=== PATIENT | female | born 2000 | race Caucasian/White ===

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

== ENCOUNTER → 2020-10-05 | Outpatient (CLI) | payer MEDICAID ==
[~2020-10-05] MED LIST: FLAGYL500 MG PO; PRILOTC PO; ZOFRAN ODT4 MG PO
== END ==
LOC: COL.RAD 06:45
DX: R10.11 Right upper quadrant pain (principal); R11.11 Vomiting without nausea

== ENCOUNTER 2021-01-02 09:05 | Emergency (ER) | payer MEDICAID ==
[~2021-01-02] VITALS: Ht 167.6 cm; Wt 93.2 kg
[2021-01-02 09:23] VITALS: TEMP 97.4
[2021-01-02 09:56] LABS: COLLECTION METHOD CLEAN CATCH
[2021-01-02 10:11] LABS: MUCOUS Present /lpf; PH 5 (5-8); SQUAMOUS EPITHELIAL 0-2 /hpf; URINE APPEARANCE Clear; URINE BACTERIA None Seen /hpf; URINE BILIRUBIN Negative (NEGATIVE); URINE BLOOD Negative (NEGATIVE); URINE COLOR Yellow; URINE GLUCOSE Negative (NEGATIVE); URINE KETONE Negative (NEGATIVE); URINE LEUKOCYTE ESTERASE Negative (NEGATIVE); URINE NITRATE Negative (NEGATIVE); URINE PROTEIN(semi-quant) Negative (NEGATIVE); URINE RBC 0-2 /hpf; URINE UROBILINOGEN Negative (NEGATIVE)
[2021-01-02 10:55] LABS: BASO # 0.1 (0.0-0.2); BASO % 0.5 % (0.0-2.0); EOS # 0.3 (0.0-0.7); EOS % 3.2 % (0-4.0); GRAN # 8.3 (1.4-6.5); GRAN % 78.5 % (42.2-75.2); HEMATOCRIT 42.9 % (35.0-45.0); HEMOGLOBIN 14.6 g/dl (12.0-15.0); LYMPH # 1.2 (1.2-3.4); LYMPH % 11.8 % (20.0-51.0); MEAN CELL VOLUME 86 fl (80.0-95.0); MEAN CORPUSCULAR HEMOGLOBIN 29 pg (26.0-32.0); MEAN CORPUSCULAR HGB CONC 34 g/dl (33.0-37.0); MEAN PLATELET VOLUME 10.6 fl (7.4-10.4); MONO # 0.6 (0.1-0.6); MONO % 5.7 % (1.7-9.3); PLATELET COUNT 262 K/mm3 (130-400); RED BLOOD COUNT 4.98 M/mm3 (4.10-5.30); REDCELL DISTRIBUTION WIDTH-CV 12.8 % (11.5-14.5)
[2021-01-02 11:04] LABS: ALBUMIN 4.4 gm/dL (3.5-5.0); BILIRUBIN,TOTAL 0.7 mg/dL (0.0-1.0); C-REACTIVE PROTEIN 0.7 mg/dL (0.0-0.9); CALCIUM 9.2 mg/dL (8.4-10.2); CREATININE, serum 0.74 (0.52-1.25); POTASSIUM 3.7 mmol/L (3.4-5.0); TOTAL PROTEIN 7.6 gm/dL (6.4-8.2)
[2021-01-02] MEDS ORDERED: FLAGYL500 MG PO (14:52)
[2021-01-02] MEDS ORDERED: ZOFRAN ODT4 MG PO (14:52)
[2021-01-02 15:05] VITALS: BP 100/60; PULSE 80
[2021-01-03] MEDS ORDERED: PRILOTC PO (23:34)
== END 2021-01-02 15:10 | disposition home or self-care (01) ==
LOC: COL.ER 09:05
PROVIDERS: Nurse Practitioner; Personal Emergency Response Attendant
DX: R10.31 Right lower quadrant pain (principal); Z32.02 Encounter for pregnancy test, result negative
CPT/HCPCS: J1885; J2405; J7030; Q9967

== ENCOUNTER 2021-01-03 16:59 | Inpatient (IN) | payer MEDICAID ==
[~2021-01-03] VITALS: Ht 167.6 cm; Wt 93.0 kg
[~2021-01-03 16:59] MED LIST changes: -PRILOTC PO
--- NOTE | 2021-01-03 18:50 | NUR ---
Pt ambulatory to 221 from home for direct admit per 's orders. Pt states she is have upper and lower right quadrant pain that is stabbing and constant. Pt reports nausea but it is better at this time. Requesting water. Plan of care explained and questions answered. Significant other with pt.
[2021-01-03 18:55] VITALS: BP 135/73; PULSE 79; TEMP 98.7
[2021-01-03 19:44] LABS: BASO # 0.1 (0.0-0.2); BASO % 0.5 % (0.0-2.0); EOS # 0.3 (0.0-0.7); EOS % 3.2 % (0-4.0); GRAN % 66.2 % (42.2-75.2); HEMOGLOBIN 14.3 g/dl (12.0-15.0); LYMPH # 2.4 (1.2-3.4); LYMPH % 23.2 % (20.0-51.0); MEAN CELL VOLUME 86 fl (80.0-95.0); MEAN CORPUSCULAR HEMOGLOBIN 29 pg (26.0-32.0); MEAN CORPUSCULAR HGB CONC 34 g/dl (33.0-37.0); MEAN PLATELET VOLUME 10.3 fl (7.4-10.4); MONO # 0.7 (0.1-0.6); MONO % 6.6 % (1.7-9.3); PLATELET COUNT 282 K/mm3 (130-400); RED BLOOD COUNT 4.87 M/mm3 (4.10-5.30); REDCELL DISTRIBUTION WIDTH-CV 12.6 % (11.5-14.5)
[2021-01-03 19:57] LABS: ALBUMIN 4.4 gm/dL (3.5-5.0); BILIRUBIN,TOTAL 0.6 mg/dL (0.0-1.0); C-REACTIVE PROTEIN 0.6 mg/dL (0.0-0.9); CALCIUM 9.1 mg/dL (8.4-10.2); CREATININE, serum 0.72 (0.52-1.25); POTASSIUM 3.8 mmol/L (3.4-5.0); TOTAL PROTEIN 7.7 gm/dL (6.4-8.2)
[2021-01-03] MEDS ORDERED: PRILOTC PO (23:34)
[2021-01-04] VITALS: BP 99/44; PULSE 67; TEMP 98.9
[2021-01-04 04:30] VITALS: BP 98/56; PULSE 66; TEMP 98.3
[2021-01-04 08:09] VITALS: BP 107/56; PULSE 64; TEMP 98.2
[2021-01-04 11:24] VITALS: BP 119/59; PULSE 85; TEMP 99.1
[2021-01-04 16:51] VITALS: BP 139/69; PULSE 83; TEMP 98.6
[2021-01-04 20:00] VITALS: BP 128/75; PULSE 71; TEMP 97.9
--- NOTE | 2021-01-04 20:30 | NUR ---
2029 C/O NAUSEA AND ABD PAIN WITH LITTLE RELIEF FROM PO ZOFRAN. 2044 DR GUILLEN NOTIFIED AND NEW ORDER RECEIVED. MORPHINE 2 MG IV GIVE FOR ABD PAIN. 2109 PHENERGAN 25MG OM 50 CC NS IV OVER 15 MINUTES GIVEN FOR NAUSEA.
[2021-01-05 00:30] VITALS: BP 102/54; PULSE 71; TEMP 98.3
[2021-01-05 04:40] VITALS: BP 105/67; PULSE 61; TEMP 98.4
--- NOTE | 2021-01-05 05:20 | NUR ---
0520 NORCO 5MG PO FOR C/O LOWER ABD PAIN. C/O SOME NAUSEA. JUICE AND CRACKERS TAKEN.
[2021-01-05 09:00] VITALS: BP 124/71; PULSE 73; TEMP 98
[2021-01-05 13:30] VITALS: BP 118/62; PULSE 67; TEMP 98.3
== END 2021-01-05 14:10 | disposition home or self-care (01) | DRG 759 ==
LOC: OB 16:59
PROVIDERS: ADMIT Obstetrics & Gynecology
DX: N73.9 Female pelvic inflammatory disease, unspecified (principal); K58.9 Irritable bowel syndrome, unspecified; E03.9 Hypothyroidism, unspecified; M41.9 Scoliosis, unspecified; E66.9 Obesity, unspecified; G43.909 Migraine, unspecified, not intractable, without status migrainosus; Z68.33 Body mass index [BMI] 33.0-33.9, adult; Z79.3 Long term (current) use of hormonal contraceptives; Z79.891 Long term (current) use of opiate analgesic
CPT/HCPCS: J0290; J1580; J1885; J2270; J2405; J2550; J7120

== ENCOUNTER → 2021-05-07 | Outpatient (CLI) | payer MEDICAID ==
[~2021-05-07] MED LIST changes: +PRILOTC PO
== END ==
LOC: COL.RAD 09:32
DX: R11.2 Nausea with vomiting, unspecified (principal)
CPT/HCPCS: A9537; J2805

== ENCOUNTER 2021-05-30 13:15 | Emergency (ER) | payer MEDICAID ==
[~2021-05-30] VITALS: Ht 167.6 cm; Wt 92.7 kg
[2021-05-30 13:19] VITALS: TEMP 98.1
[2021-05-30 14:27] LABS: BASO % 0.3 % (0.0-2.0); EOS # 0.1 K/mm3 (0.0-0.7); EOS % 1.1 % (0.0-4.0); GRAN # 7.3 K/mm3 (1.4-6.5); GRAN % 76.3 % (42.2-75.2); HEMOGLOBIN 13.7 g/dl (12.0-15.0); LYMPH # 1.5 K/mm3 (1.2-3.4); LYMPH % 15.2 % (20.0-51.0); MEAN CELL VOLUME 85 fl (80.0-95.0); MEAN CORPUSCULAR HEMOGLOBIN 30 pg (26-32); MEAN CORPUSCULAR HGB CONC 35 g/dl (33.0-37.0); MEAN PLATELET VOLUME 10.1 fl (7.4-10.4); MONO # 0.7 K/mm3 (0.1-0.6); MONO % 6.8 % (1.7-9.3); PLATELET COUNT 255 K/mm3 (130-400); REDCELL DISTRIBUTION WIDTH-CV 12.3 % (11.5-14.5)
[2021-05-30 14:42] LABS: ALBUMIN 3.9 gm/dL (3.5-5.0); BILIRUBIN,TOTAL 1.5 mg/dL (0.2-1.2); CALCIUM 9.1 mg/dL (8.4-10.2); CREATININE, serum 0.72 mg/dL (0.57-1.11); TOTAL PROTEIN 7.2 gm/dL (6.2-8.1)
[2021-05-30] MEDS ORDERED: ZOFRAN ODT4 MG PO (16:54)
[2021-05-30] MEDS ORDERED: PERCOCET 325 MG1 TA2 PO (16:54)
[2021-05-30 17:05] VITALS: BP 133/75; PULSE 91
== END 2021-05-30 17:45 | disposition home or self-care (01) ==
LOC: COL.ER 13:15
PROVIDERS: Personal Emergency Response Attendant
DX: R10.11 Right upper quadrant pain (principal); R11.0 Nausea; M41.9 Scoliosis, unspecified; Z88.5 Allergy status to narcotic agent; Z32.02 Encounter for pregnancy test, result negative
CPT/HCPCS: J2270; J2405; J7030

== ENCOUNTER 2021-06-05 05:20 | Day surgery (SDC) | payer MEDICAID ==
[2021-06-05] VITALS (7 sets, daily range): BP systolic 110–127; BP diastolic 63–76; PULSE 73–86; TEMP 98.2–98.5
[~2021-06-05] VITALS: Ht 167.6 cm; Wt 90.6 kg
[~2021-06-05 05:20] MED LIST changes: +PERCOCET 325 MG1 TA2 PO
[2021-06-05] MEDS ORDERED: PROZAC 20MG20 MG PO (05:38)
[2021-06-05] MEDS ORDERED: MOTRIN 600600 MG/TAB PO (09:11)
[2021-06-05] MEDS ORDERED: PERCOCET 325 MG1 TA2 PO (09:12)
--- NOTE | 2021-06-05 09:50 | NUR ---
PATIENT TRANSPORTED PER CART FROM PACU TO BAY 8 IN SDC UNIT. PATIENT IS RESTING WITH EYES CLOSED BUT DOES TALK WITH STAFF. ABD SITES ARE CDI. MONITORS APPLIED VSS ON 2LITERS. PATIENT'S MOTHER IN ROOM. LIGHTS DIMMED AND PATIENT CONTINUES RESTING.
--- NOTE | 2021-06-05 10:30 | NUR ---
VSS ON 2 LITERS. PATIENT CONTINUES RETSING. DOES NOT VOICE C/O'S.
--- NOTE | 2021-06-05 10:45 | NUR ---
VSS ON ROOM AIR. PATIENT GIVEN WATER TO DRINK. MOTHER ASSISTS HELPING PATIENT.
--- NOTE | 2021-06-05 11:00 | NUR ---
VSS ON ROOM AIR. PATIENT TALKS WITH MOTHER AND BOYFRIEND ON PHONE. PATIENT STATES SHE IS HAVING ALOT OF PAIN AND NEEDS TO VOID. PATIENT AMBULATED TO RESTROOM WITH 1 ASSIST. PATIENT STATES SHE IS NOT ABLE TO VOID AT THIS TIME. AMBULATED BACK TO BAY 8. PATIENT GIVEN MUFFIN AND APPLE JUICE TO DRINK. IV HELPLOCK. 1015 VSS ON ROOM AIR. PATIENT TOLERATES FOOD AND DRINK WITHOUT PROBLEMS. PATIENT GIVEN PERCOCET ORDERED. PATIENT SITTING UP ON CART.
--- NOTE | 2021-06-05 11:20 | NUR ---
VSS ON 2 LITERS. PATIENT RESTING IN BED WITH EYES CLOSED AND EVEN RESPIRATION. MOTHER IN ROOM.
--- NOTE | 2021-06-05 11:20 | NUR ---
VSS ON ROOM AIR. PATIENT GIVEN PERCOCET FOR DISCOMFORT. PATIENT DENIES NAUSEA. 1130 PATIENT REQUEST TO USE RESTROOM. IV DC'D WITH CATHETER TIP INTACT. PRESSURE AND BANDAGE APPLIED. PATIENT AMBULATED TO RESTROOM AND VOID WITHOUT PROBLEMS. MOTHER WITH PATIENT. 1140 DISCHARGE INSTRUCTIONS GIVEN VERBAL AND DISCHARGE PACKET PROVIDED. QUESTIONS ANSWERED AND PATIENT AND MOTHER VOICED UNDERSTANDING. [address] CLOTHES[address] 1155 PATIENT DICHARGED PER WHEELCHAIR. ACCOMPANIED BY AMB RN TO PRIVATE VECHILE AND MOTHER ACCOMPANIES. VECHILE DRIVEN BY BOYFRIEND.
== END 2021-06-05 11:55 | disposition home or self-care (01) ==
LOC: SDCO 05:20
DX: K80.44 Calculus of bile duct with chronic cholecystitis without obstruction (principal); K21.9 Gastro-esophageal reflux disease without esophagitis; F31.9 Bipolar disorder, unspecified; F41.9 Anxiety disorder, unspecified; Z79.899 Other long term (current) drug therapy
CPT/HCPCS: J0330; J0690; J1100; J1885; J2250; J2405; J2704; J3010; J7120

== ENCOUNTER 2021-11-03 09:28 | Emergency (ER) | payer MEDICAID ==
[~2021-11-03] VITALS: Ht 165.1 cm; Wt 88.6 kg
[~2021-11-03 09:28] MED LIST changes: +MOTRIN 600600 MG/TAB PO; +PROZAC 20MG20 MG PO
[2021-11-03 09:47] VITALS: TEMP 97.7
[2021-11-03 10:15] LABS: BASO # 0.1 K/mm3 (0.0-0.2); BASO % 0.6 % (0.0-2.0); EOS # 0.2 K/mm3 (0.0-0.7); EOS % 2.2 % (0.0-4.0); GRAN # 7.5 K/mm3 (1.4-6.5); HEMATOCRIT 39.8 % (37.0-47.0); HEMOGLOBIN 14.1 g/dl (12.5-16.0); LYMPH # 1.4 K/mm3 (1.2-3.4); LYMPH % 13.9 % (20.0-51.0); MEAN CELL VOLUME 86 fl (80.0-100.0); MEAN CORPUSCULAR HEMOGLOBIN 30 pg (27-31); MEAN CORPUSCULAR HGB CONC 35 g/dl (33.0-37.0); MEAN PLATELET VOLUME 10.7 fl (7.4-10.4); MONO # 0.6 K/mm3 (0.1-0.6); MONO % 6.1 % (1.7-9.3); PLATELET COUNT 235 K/mm3 (130-400); RED BLOOD COUNT 4.64 M/mm3 (4.10-5.30); REDCELL DISTRIBUTION WIDTH-CV 12.1 % (11.5-14.5)
[2021-11-03 10:31] LABS: ALBUMIN 3.8 gm/dL (3.5-5.0); BILIRUBIN,TOTAL 0.7 mg/dL (0.2-1.2); CALCIUM 8.9 mg/dL (8.4-10.2); CREATININE, serum 0.77 mg/dL (0.57-1.11); TOTAL PROTEIN 7.6 gm/dL (6.2-8.1)
[2021-11-03 11:06] LABS: COLLECTION METHOD CLEAN CATCH
[2021-11-03 11:12] LABS: MUCOUS Present (NOT PRESENT); PH 5 (5-8); SQUAMOUS EPITHELIAL 0-2 /hpf (0-10); URINE APPEARANCE Clear (CLEAR/HAZY); URINE BACTERIA None Seen /hpf (NONE SEEN); URINE BILIRUBIN Negative (NEGATIVE); URINE BLOOD 1+ (NEGATIVE); URINE COLOR Yellow (YELLOW); URINE GLUCOSE Negative (NEGATIVE); URINE KETONE Negative (NEGATIVE); URINE LEUKOCYTE ESTERASE Negative (NEGATIVE); URINE NITRATE Negative (NEGATIVE); URINE PROTEIN(semi-quant) Negative (NEGATIVE); URINE RBC 0-2 /hpf (0-2); URINE UROBILINOGEN Negative (NEGATIVE)
[2021-11-03 12:47] VITALS: BP 124/78; PULSE 80
== END 2021-11-03 12:47 | disposition home or self-care (01) ==
LOC: COL.ER 09:28
PROVIDERS: Emergency Medicine; Nurse Practitioner
DX: N93.9 Abnormal uterine and vaginal bleeding, unspecified (principal); Z32.02 Encounter for pregnancy test, result negative; Z28.311 Partially vaccinated for COVID-19
CPT/HCPCS: J1885; J2405; J7030

== ENCOUNTER 2022-03-01 16:30 | Emergency (ER) | payer MEDICAID ==
[~2022-03-01] VITALS: Ht 167.6 cm; Wt 86.4 kg
[2022-03-01 16:39] VITALS: TEMP 98.6
[2022-03-01 17:17] LABS: COLLECTION METHOD CLEAN CATCH
[2022-03-01 17:20] LABS: BASO # 0.1 K/mm3 (0.0-0.2); BASO % 0.4 % (0.0-2.0); EOS # 0.3 K/mm3 (0.0-0.7); EOS % 1.9 % (0.0-4.0); GRAN # 9.9 K/mm3 (1.4-6.5); GRAN % 74.1 % (42.2-75.2); HEMATOCRIT 40.8 % (37.0-47.0); HEMOGLOBIN 14.6 g/dl (12.5-16.0); LYMPH # 2.5 K/mm3 (1.2-3.4); LYMPH % 18.8 % (20.0-51.0); MEAN CELL VOLUME 84 fl (80.0-100.0); MEAN CORPUSCULAR HEMOGLOBIN 30 pg (27-31); MEAN CORPUSCULAR HGB CONC 36 g/dl (33.0-37.0); MEAN PLATELET VOLUME 9.7 fl (7.4-10.4); MONO # 0.6 K/mm3 (0.1-0.6); MONO % 4.6 % (1.7-9.3); PLATELET COUNT 282 K/mm3 (130-400); RED BLOOD COUNT 4.88 M/mm3 (4.10-5.30); REDCELL DISTRIBUTION WIDTH-CV 12.1 % (11.5-14.5)
[2022-03-01] MEDS ORDERED: NEXPLANON68 MG ID (17:26)
[2022-03-01 17:29] LABS: MUCOUS Present (NOT PRESENT); URINE BACTERIA None Seen /hpf (NONE SEEN); URINE RBC 0-2 /hpf (0-2)
[2022-03-01 17:31] LABS: PH 5.5 (5-8); URINE APPEARANCE Hazy (CLEAR/HAZY); URINE BLOOD 1+ (NEGATIVE); URINE COLOR Yellow (YELLOW); URINE GLUCOSE Negative (NEGATIVE); URINE KETONE Negative (NEGATIVE); URINE NITRATE Negative (NEGATIVE); URINE PROTEIN(semi-quant) Negative (NEGATIVE); URINE UROBILINOGEN 0.2 (NEGATIVE)
[2022-03-01 17:39] LABS: ALBUMIN 3.9 gm/dL (3.5-5.0); BILIRUBIN,TOTAL 0.8 mg/dL (0.2-1.2); C-REACTIVE PROTEIN 0.22 mg/dL (0.00-0.50); CALCIUM 9.4 mg/dL (8.4-10.2); CREATININE, serum 0.78 mg/dL (0.57-1.11); TOTAL PROTEIN 7.4 gm/dL (6.2-8.1)
[2022-03-01 19:47] VITALS: BP 119/81; PULSE 79
== END 2022-03-01 19:47 | disposition home or self-care (01) ==
LOC: COL.ER 16:30
PROVIDERS: Nurse Practitioner
DX: N83.201 Unspecified ovarian cyst, right side (principal); Z90.49 Acquired absence of other specified parts of digestive tract; Z32.02 Encounter for pregnancy test, result negative
CPT/HCPCS: J1885; J2405; J7030; Q9967